=== PATIENT | male | born 1990 | race Caucasian/White ===

== ENCOUNTER 2017-10-12 13:50 | Emergency (ER) | payer OTHER, BC ==
[~2017-10-12] VITALS: Ht 172.7 cm; Wt 68.0 kg
[~2017-10-12 13:50] MED LIST: PREDNISONE20 MG PO
== END 2017-10-12 15:45 | disposition home or self-care (01) ==
LOC: ED 13:50
PROC: 0HQ0XZZ Repair Scalp Skin, External Approach (ICD-10-PCS; principal; 2017-10-12)
DX: S06.0X0A Concussion without loss of consciousness, initial encounter (principal); S01.01XA Laceration without foreign body of scalp, initial encounter; Y99.0 Civilian activity done for income or pay; W22.8XXA Striking against or struck by other objects, initial encounter; Y92.89 Other specified places as the place of occurrence of the external cause; Z23 Encounter for immunization
CPT/HCPCS: 12011; 70450; 90471; 90714; 99283

== ENCOUNTER 2017-10-21 09:06 | Emergency (ER) | payer OTHER, BC ==
[~2017-10-21] VITALS: Ht 172.7 cm; Wt 68.0 kg
== END 2017-10-21 09:31 | disposition home or self-care (01) ==
LOC: ED 09:06
DX: Z48.02 Encounter for removal of sutures (principal)